=== PATIENT | male | born 1985 | race Caucasian/White ===

== ENCOUNTER 2017-02-11 20:39 | Emergency (ER) | payer OTHER ==
--- NOTE | 2017-02-12 00:06 | DIAGNOSTIC IMAGING REPORT ---
PROCEDURE: ABDOMEN/PELVIS WITH CONTRAST CLINICAL INDICATION: ABDOMINAL PAIN TECHNIQUE: 130 ml of Isovue 300 were injected intravenously and axial images were obtained of the abdomen and pelvis with sagittal and coronal reformations. COMPARISON: None. FINDINGS: ABDOMEN: The gallbladder surgically absent. Minor left base atelectasis. Normal sized heart. No hiatal hernia. The liver, adrenal glands, kidneys, and spleen are normal. The abdominal aorta is normal in its course and caliber. There is a trace amount of camryn vascular fat stranding adjacent to the celiac axis and superior mesenteric artery origin. Nonenlarged, but numerous periaortic retroperitoneal lymph nodes are present. There are nonenlarged lymph nodes mesenteric small bowel, particularly in the left upper abdomen. There are no suspicious calcifications, or masses. The stomach, and upper bowel loops are normal. Intact anterior abdominal wall. PELVIS: The appendix and pelvic small bowel loops are normal. Normal to minimally increased amount of stool in the colon and rectum. The prostate gland , seminal vesicles, urinary bladder, and pelvic vessels are normal. No adenopathy , free fluid, or pelvic mass. Limbus vertebra L5. IMPRESSION: 1. Nonspecific, subtle retroperitoneal/camryn vascular inflammation in the upper retroperitoneum. There are numerous, but none bulky lymph nodes in the retroperitoneum and small bowel mesentery. These findings are nonspecific and could indicate early or resolving/residual changes of mild pancreatitis, less likely large vessel arteritis, lymphoma, or retroperitoneal fibrosis. 2. Status post cholecystectomy. 3. Discussed with Dr. Miles in the emergency room. All CT scans at this facility use dose modulation, iterative reconstruction, and/or weight-based dosing when appropriate to reduce radiation dose to as low as reasonably achievable.
--- NOTE | 2017-02-12 01:44 | ED NURSING NOTES ---
Clinical Report - Nurses [facility] [address] [place] [address] 02/11/2017 20:39 Patient: PAOLO CRAWFORD TRIAGE Triage time 20:46. Acuity: LEVEL 3. Chief Complaint: ABDOMINAL PAIN and NAUSEA. --20:49 TonyaB, R.N. 20:46 02/11/17. BP: 151/94. HR: 72. RR: 18. O2 saturation: 97%. Temp: 97.8 F. Pain level now: 01/17. --20:49 TonyaB, R.N. Weight: 116.1 kg. Height/Length: 76 inches. BMI: 31.2. --20:48 TonyaB, R.N. Medications None. --20:47 TonyaB, R.N. Allergies No Known Drug Allergy. --20:47 TonyaB, R.N. History Arrived by private vehicle. Historian: patient. Onset. (1 months). Treatment AUTO ACCESSORIES INSTALLER: None. PAST MEDICAL HX: Immunizations: up-to-date. SOCIAL HX: Never smoker. Occasional alcohol use. No drug use. No recent travel. No infectious disease exposure. No known contact with a sick individual. SELF HARM ASSESSMENT: A self harm assessment was performed. The patient answered "no" to the question "Have you recently felt down, depressed, or hopeless?", "Have you noticed less interest or pleasure in doing things?", "Do you have thoughts of harming or killing yourself?", "Are you here because you tried to hurt yourself?", "Have you ever tried to hurt yourself before today?", "Have you recently had thoughts about harming or killing others?" and "Do you have any dangerous items in your possession?". FALL RISK ASSESSMENT: Fall risk assessment completed. No fall risk identified. NUTRITIONAL RISK ASSESSMENT: The nutritional risk assessment revealed no deficiencies. FUNCTIONAL ASSESSMENT: Functional assessment: no impairments noted. LEARNING NEEDS ASSESSMENT: The learning needs assessment revealed no barriers. ABUSE ASSESSMENT: Abuse assessment: The patient was asked "Do you feel safe in your home?". SKIN INTEGRITY ASSESSMENT: Skin integrity risk assessment completed. No skin integrity risk identified. --20:49 Travis Gilbert PROBLEMS: Lumbar Radiculopathy. Intervertebral Disc Disease. Back Injury. Impacted Cerumen. Pharyngitis. Strep Throat. Seasonal allergic rhinitis. Back Pain. Rectal Bleed. Weakness. Neuropathy. Epididymitis. Crush Injury, Upper Extremity. Fractured Metacarpal. Tetanus Status. Hemorrhoids. Headache. Hypertension. Dyspnea. Bronchitis. Immunizations. Asthma. --20:47 Que Gilbert. ADDITIONAL SURGERIES: Cholecystectomy. Inguinal Hernia Repair. --20:47 Que Gilbert. Interventions ID band on patient. To treatment room. --20:49 Que Gilbert. PHYSICAL ASSESSMENT Ambulatory to room. GENERAL / NEURO / PSYCH: Alert. Oriented X 4. Appears in no acute distress. HEENT: Mucous membranes are pink. RESPIRATORY: Respirations not labored. Breath sounds within normal limits. CVS: Normal sinus rhythm noted. Capillary refill less than 2 seconds. GI / : Abdomen soft. Abdominal tenderness. Bowel sounds within normal limits. SKIN: Skin is warm and dry. --20:49 Travis Gilbert NURSING PROGRESS NOTES Patient gowned. Patient identifiers checked. Call light placed in reach. Side rails up x 1. Bed placed in lowest position. Brakes of bed on. --20:49 Travis Gilbert 20:58 02/11/2017 Site #1 started via IV in the left antecubital space with an 20g angiocath, with aseptic technique and good blood return; one attempt. Blood drawn: rainbow set. Labeled in the presence of the patient and sent to the lab. Saline lock flushed with 10 mL saline. --20:58 Travis Gilbert 21:02/11/2017 Started bag #1 1000 mL IV Fluids IV NS (Saline); at 999 mL/hr over 1 hour(s) via site #1 via dial-a-flow. Allergies verified and confirmed 5 rights. IV patency established. IV site checked: no pain, redness, or swelling. IV flushed thoroughly pre- and post-medication administration. --21:13 Travis Gilbert 21:02/11/2017 Toradol IVP 30 mg given over 1 minute(s) via site #1. Allergies verified and confirmed 5 rights. IV patency established. IV site checked: no pain, redness, or swelling. IV flushed thoroughly pre- and post-medication administration. IVP given by RN. --21:13 Travis Gilbert 21:14 02/11/2017 Zofran (Ondansetron HCl) IVP 4 mg given over 1 minute(s) via site #1. Allergies verified and confirmed 5 rights. IV patency established. IV site checked: no pain, redness, or swelling. IV flushed thoroughly pre- and post-medication administration. IVP given by RN. --21:14 Travis Gilbert 21:20. EKG was performed by a tech. --21:20 McQuoid, Eva, ER Tech1 22:02 02/11/2017 IV Fluids IV NS Discontinued: bag #1 completed. Total amount infused: 1000 mL. IV patency established. IV site checked: no pain, redness, or swelling. IV flushed thoroughly. --22:02 Travis Gilbert Reassessment after medication administered. He is resting quietly. --22:13 Travis Gilbert 00:10 02/12/2017 GI COCKTAIL WHITE (Simethicone) PO Oral Suspension 50 mL given. Allergies verified and confirmed 5 rights. --00:10 Mary Ann Hickey ( no change in pain level after GI cocktail). --01:08 Travis Gilbert DISPOSITION / DISCHARGE Departure time: 02:00. Condition at departure: improved. No learning barriers present. Discharge instructions provided and reviewed with the patient. Reviewed medication(s) side effects, precautions, dosing and course information. Prescription(s) given to the patient. Patient verbalized understanding. Written instructions provided in Montenegrin. No warning instructions, treatment instructions, referrals given to the patient, diet instructions or activity restrictions. No note given, follow up contact number given or stop smoking instructions. The patient was discharged by the physician. He was discharged home. He left the Emergency Department ambulatory and via private vehicle. Patient driving. FALL RISK ASSESSMENT: Fall risk assessment completed. No fall risk identified. --02:00 Travis Gilbert 01:56 02/12/17. BP: deferred. HR: 68. RR: 18. O2 saturation: 99%. Temp: deferred. Pain level now: 0/10. --02:00 Travis Gilbert 02:00 02/12/2017 Site #1 removed upon discharge. Catheter intact. Bandaid applied. --02:00 Travis Gilbert Locked/Released at 02/12/2017 2:01 by Travis Gilbert
--- NOTE | 2017-02-12 01:44 | ED CLINICAL REPORT ---
Clinical Report - Physicians/Mid Levels [facility] [address] [place] [address] 02/11/2017 20:39 Patient: PAOLO CRAWFORD Time Seen: 20:47; upon arrival, initial patient contact, initial documentation, patient care assumed. Arrived- By private vehicle. Historian- patient. CPT: ER phys charges level 4 plus (#[id number]). EKG interpretation (#[id number]). HISTORY OF PRESENT ILLNESS Chief Complaint: ABDOMINAL PAIN. At its maximum, severity described as mild. When seen in the E.D., severity described as mild. Modifying factors. Not worsened by anything. Not relieved by anything. It is described as "pain" and it is described as located in the right upper quadrant and radiating to the upper back. This started about 6 months ago. Worse over the past month. and is still present and now worse. (GENERATION TECHNOLOGIST). It was abrupt in onset and has been intermittent. The patient has had nausea. No loss of appetite, vomiting or diarrhea. No additional abdominal pain. No recent travel. Similar symptoms previously: Once, as bad. ( same pain when he had his gallbladder issues). Recent medical care: Not recently seen/assessed. REVIEW OF SYSTEMS No constipation, black stools or stools, hematemesis or difficulty with urination. No pain with urination, urinary frequency, bloody stools or stools or fever. No sore throat, calf pain, chest pain, cough or difficulty breathing. No constipation, diarrhea, skin rash, dizziness or weakness. No diabetic symptoms or easy bruising. The patient has had chest pain, difficulty breathing and abdominal pain. No difficulty walking. All systems otherwise negative, except as recorded above. PAST HISTORY See nurses notes. PROBLEMS: Lumbar Radiculopathy. Intervertebral Disc Disease. Back Injury. Impacted Cerumen. Pharyngitis. Strep Throat. Seasonal allergic rhinitis. Back Pain. Rectal Bleed. Weakness. Neuropathy. Epididymitis. Crush Injury, Upper Extremity. Fractured Metacarpal. Tetanus Status. Hemorrhoids. Headache. Hypertension. Dyspnea. Bronchitis. Immunizations. Asthma. --20:47 Travis Gilbert ADDITIONAL SURGERIES: Cholecystectomy. Inguinal Hernia Repair. --20:47 Travis Gilbert SOCIAL HISTORY Never smoker. Occasional alcohol use. No drug use. No recent travel. Is a local resident. He lives with spouse. FAMILY HISTORY Negative. ADDITIONAL NOTES The nursing notes have been reviewed with agreement regarding the chief complaint, HPI, ROS, PMH and patient medications and allergies. PHYSICAL EXAM Vital Signs: 02/11/2017 20:46 BP: 151/94. HR: 72. RR: 18. O2 saturation: 97%. Temp: 97.8 F. Pain level now: 01/17. Have been reviewed as abnormal and appear to be correct. Hypertensive. Heart rate normal. Respiratory rate normal. Temperature normal. Oxygen saturation normal. Appearance: Alert. Oriented X3. No acute distress. Eyes: Pupils equal, round and reactive to light. Eyes normal inspection. Neck: Normal inspection. Neck supple. CVS: Normal heart rate and rhythm. Heart sounds normal. Pulses normal. Respiratory: No respiratory distress. Breath sounds normal. (pain over the costal margin on the right with mild pain over the flank.). Abdomen: Soft. Mild tenderness in the right upper quadrant. Bowel sounds normal. No organomegaly. No mass. Tenderness present. Back: Normal inspection. Skin: Skin warm and dry. Normal skin color. No rash. Normal skin turgor. Extremities: Extremities exhibit normal ROM. No lower extremity edema. Neuro: Oriented X 3. No motor deficit. No sensory deficit. LABS, X-RAYS, AND EKG EKG: EKG time: (2119). No acute process. No acute ischemia. Normal EKG. Rate: 68. First-degree atrioventricular block. Normal EKG. The study has been interpreted contemporaneously by me (and interpreted by Dr Miles). The EKG appears to be a good tracing. Interpretation time: 2119. Abdominal CT: Normal liver, spleen and pancreas. No free fluid. No hepatomegaly or splenomegaly. Abdominal CT performed with IV contrast. The study was interpreted by the radiologist and discussed with the radiologist. Laboratory Tests: Lipase: (REBEKAH: 02/12/2017 00:00) ( MsgRcvd 02/12/2017 00:32) Final results Test Result Flag Units (Reference) LIPASE 223 U/L (73-393) UA-Culture if indicated: (REBEKAH: 02/11/2017 21:05) ( MsgRcvd 02/11/2017 21:31) Final results Test Result Flag Units (Reference) URINE COLOR YELLOW URINE APPEARANCE CLEAR URINE GLUCOSE NEGATIVE (NEGATIVE) URINE BILIRUBIN NEGATIVE (NEGATIVE) URINE KETONE NEGATIVE (NEGATIVE) URINE SPECIFIC GRAVITY 1.025 (1.010-1.030) URINE PH 6.0 (5.0-8.0) URINE PROTEIN NEGATIVE (NEGATIVE) URINE UROBILINOGEN 1.0 EU/dL (0.2-1.0) URINE NITRITE NEGATIVE (NEGATIVE) URINE BLOOD NEGATIVE (NEGATIVE) URINE LEUK ESTERASE NEGATIVE (NEGATIVE) URINE RBC NONE SEEN rbc/hpf (0-1) URINE WBC RARE wbc/hpf (0-1) URINE EPITHELIAL CELLS NONE SEEN EPI/hpf (0-5) URINE BACTERIA TRACE (<1+) (NONE SEEN) URINE COMMENT CULT NOT INDICATED URINE CULTURES ARE SET-UP BASED ON THE FOLLOWING CRITERIA:POSITIVE NITRITEPOSITIVE LEUKOCYTE ESTERASEGREATER THAN 10 WHITE BLOOD CELLSMODERATE (2+) OR GREATER BACTERIA CBC w Diff: (REBEKAH: 02/11/2017 20:55) ( MsgRcvd 02/11/2017 21:12) Final results Test Result Flag Units (Reference) WHITE BLOOD COUNT 7.3 K/uL (4.5-11.5) RED BLOOD COUNT 4.72 M/uL (4.50-5.90) HEMOGLOBIN 15.0 gm/dL (13.5-17.5) HEMATOCRIT 42.6 % (41.0-53.0) MEAN CELL VOLUME 90 fL (80-100) MEAN CORPUSCULAR HGB 32 pg (26-34) MEAN CORPUSCULAR HGB CONC 35 g/dL (31-37) RED CELL DISTRIBUTION WIDTH 13.0 % (11.6-14.8) PLATELET COUNT 197 K/uL (150-400) NEUTROPHIL % 44.5 L % (50-75) LYMPH % 42.8 H % (25-40) MONO % 8.6 % (3-14) EOSINOPHIL % 3.5 % (0-4) BASOPHIL % 0.6 % (0-2) [id number]: (REBEKAH: 02/11/2017 20:55) ( MsgRcvd 02/11/2017 23:23) Final results Test Result Flag Units (Reference) C-REACTIVE PROTEIN < 0.2 mg/dL (0.0-0.9) [id number]: (REBEKAH: 02/11/2017 20:55) ( MsgRcvd 02/11/2017 23:34) Final results Test Result Flag Units (Reference) PROCALCITONIN < 0.05 ng/mL (0-0.5) PCT Concentration: Interpretation : Risk/option for action PCT <=0.5 ng/mL : Systemic : Low risk forinfection(sepsis): progression to severeis not likely. : systemic infection.Local bacterial : CAUTION-PCT levelsinfection is : below 0.5 ng/mL do notpossible. : exclude an infection,because localizedinfections (withoutsystemic signs) may beassociated with suchlow levels. If PCT ismeasured very earlyafter a bacterialchallenge (usually <6hours), these valuesmay still be low. Inthis case PCT shouldbe re-assessed 6-24hours later. PCT >0.5 and : Systemic infection: Moderate risk for<= 2 ng/mL : (sepsis) is : progression to severepossible, but : systemic infection.other conditions : The patient should beare known to : closely monitoredelevate PCT. : both clinically andby re-assessing PCTwithin 6-24 hours. PCT > 2 ng/mL : Systemic infection: High risk for(sepsis) is likely: progression to severeunless other : systemic infection.causes are known. : PCT >= 10 ng/mL : Important systemic: High likelihood ofinflammatory : severe sepsis orresponse, almost : septic shock.exclusively due to:severe bacterial :sepsis or septic :shock. : CMP: (REBEKAH: 02/11/2017 20:55) ( MsgRcvd 02/11/2017 21:43) Final results Test Result Flag Units (Reference) GLUCOSE 99 mg/dL (70-110) BUN 15 mg/dL (7-18) CREATININE 1.2 mg/dL (0.6-1.3) Estimated GFR >60 mL/min Estimated GFR- >60 mL/min Note: Persistent reduction over 3 months in eGFR<60 mL/min/1.73 m2 defines CKD. Patients with eGFR values>=60 mL/min/1.73 m2 may also have CKD if evidence ofpersistent proteinuria. Additional information may be foundat www.kidney.org. SODIUM 145 mmol/L (136-145) POTASSIUM 3.7 mmol/L (3.5-5.1) CHLORIDE 107 mmol/L (98-107) CARBON DIOXIDE 28 mmol/L (21-32) CALCIUM 8.5 mg/dL (8.5-10.1) TOTAL PROTEIN 7.8 g/dL (6.4-8.2) ALBUMIN 4.0 g/dL (3.3-5.0) BILIRUBIN, TOTAL 0.5 mg/dL (0.0-1.0) ALKALINE PHOSPHATASE 64 U/L (46-116) AST (SGOT) 32 U/L (15-37) ALT (SGPT) 61 U/L (12-78) LIPASE 216 U/L (73-393) AMYLASE 60 U/L (25-115) . PROGRESS AND PROCEDURES Course of Care: 2134. pt updated with ekg results and currents labs, pain down a hair 2244. awaiting ct, resting quietly, nad 23:13 02/11/17. reported off to Dr Miles, pt in ct 01:42 02/12/17. CT negative, repeat Lipase negative and white GI cocktail did nothing. Pt has musculoskeletal pain on my exam. Will try conservative measures and have him follow up. Patient/family counseled. Differential Diagnosis: I considered gastritis, gastroenteritis, peptic ulcer disease, gastroesophageal reflux disease, mesenteric lymphadenitis, biliary colic, hepatitis, pancreatitis, common bile duct obstruction, hernia, urinary tract infection, ureterolithiasis and viral syndrome as a possible cause of abdominal pain in this patient. This is a partial list of diagnoses considered. Above considerations are based on history, physical exam, reassessment, laboratory data and EKG. Differential diagnosis was discussed with patient. Disposition: Discharged. Condition: stable. CLINICAL IMPRESSION Probable chest wall pain .12 lead EKG performed. INSTRUCTIONS Apply moist heat for 15-20 minutes two times a day for one weeks until better. No strenuous activity. Warnings: Further evaluation is necessary. GENERAL WARNINGS: Return or contact your physician immediately if your condition worsens or changes unexpectedly, if not improving as expected, or if other problems arise. Prescription Medications: Ibuprofen 800 mg tablets: take 1 tablet orally every 8 hours as needed for pain. Dispense thirty (30). No refills. Follow-up: Follow up with your doctor in one week. Call for an appointment. Understanding of the discharge instructions verbalized by patient. (Electronically signed by Macho Miles MD 02/12/2017 23:25)
--- NOTE | 2017-02-12 01:45 | ED ORDER SUMMARY ---
..... Patient: PAOLO CRAWFORD OrderSheet [facility] VisitID: [id number] [place] [address] 31y, M Registration Date/Time: 02/11/2017 ORDER SHEET Weight: 116.1 kg Allergies: No Known Drug Allergy GENERAL ORDERS: CBC w Diff Urgent (21:03 02/11/2017 HBivens A.R.N.P.) (21:04 TBowen R.N.) CMP Urgent (21:03 02/11/2017 HBivens A.R.N.P.) (21:04 TBowen R.N.) UA-Culture if indicated Urgent (21:03 02/11/2017 HBivens A.R.N.P.) (21:13 TBowen R.N.) Amylase Urgent (21:03 02/11/2017 HBivens A.R.N.P.) (21:04 TBowen R.N.) Lipase Urgent (21:03 02/11/2017 HBivens A.R.N.P.) (21:04 TBowen R.N.) EKG - ER Stat (21:03 02/11/2017 HBivens A.R.N.P.) (21:19 AMcQuoid ER Tech1) CT Abd/Pel w Cont (No) (normal) Urgent (21:56 02/11/2017 HBivens A.R.N.P.) (Ack 22:03 AMcQuoid ER Tech1) (23:16 MCampbell) PCT (Procalcitonin) Urgent (23:05 02/11/2017 Deborah CARABALLO) (23:16 AMcQuoid ER Tech1) CRP Urgent (23:05 02/11/2017 Deborah CARABALLO) (23:16 AMcQuoid ER Tech1) Lipase Urgent (00:00 02/12/2017 Deborah CARABALLO) (0:15 AMcQuoid ER Tech1) MEDICATION ORDERS: GI Cocktail WHITE PO 50 mL (NOW) (23:59 02/11/2017 Deborah CARABALLO) (Ack 0:05 HSoule) (0:10 HSoule) IV FLUIDS: IV NS : initial bolus 1000 mL (1000 mL/hr), then none - (NOW) (21:03 02/11/2017 HBivens A.R.N.P.) (21:13 TBowen R.N.) Toradol IV 30 mg (NOW) (21:03 02/11/2017 HBivens A.R.N.P.) (21:13 TBowen R.N.) Zofran IV 4 mg (NOW) (21:02/11/2017 HBivens A.R.N.P.) (21:14 TBowen R.N.) IV Saline Lock (21:02/11/2017 HBivens A.R.N.P.) (21:06 TBowen R.N.) ORDER SHEET NOTES: [Electronically signed by Colleen Beebe R.N. (02:01 02/12/2017)] [Electronically signed by Macho Miles MD (23:25 02/12/2017)] [Electronically locked/signed by Colleen Beebe R.N. (02:02/12/2017)]
--- NOTE | 2017-02-12 01:45 | ED ORDER SUMMARY ---
..... Patient: PAOLO CRAWFORD OrderSheet [facility] VisitID: [id number] [place] [address] 31y, M Registration Date/Time: 02/11/2017 ORDER SHEET Weight: 116.1 kg Allergies: No Known Drug Allergy GENERAL ORDERS: CBC w Diff Urgent (21:03 02/11/2017 HBivens A.R.N.P.) (21:04 TBowen R.N.) CMP Urgent (21:03 02/11/2017 HBivens A.R.N.P.) (21:04 TBowen R.N.) UA-Culture if indicated Urgent (21:03 02/11/2017 HBivens A.R.N.P.) (21:13 TBowen R.N.) Amylase Urgent (21:03 02/11/2017 HBivens A.R.N.P.) (21:04 TBowen R.N.) Lipase Urgent (21:03 02/11/2017 HBivens A.R.N.P.) (21:04 TBowen R.N.) EKG - ER Stat (21:03 02/11/2017 HBivens A.R.N.P.) (21:19 AMcQuoid ER Tech1) CT Abd/Pel w Cont (No) (normal) Urgent (21:56 02/11/2017 HBivens A.R.N.P.) (Ack 22:03 AMcQuoid ER Tech1) (23:16 MCampbell) PCT (Procalcitonin) Urgent (23:05 02/11/2017 Deborah CARABALLO) (23:16 AMcQuoid ER Tech1) CRP Urgent (23:05 02/11/2017 Deborah CARABALLO) (23:16 AMcQuoid ER Tech1) Lipase Urgent (00:00 02/12/2017 Deborah CARABALLO) (0:15 AMcQuoid ER Tech1) MEDICATION ORDERS: GI Cocktail WHITE PO 50 mL (NOW) (23:59 02/11/2017 Deborah CARABALLO) (Ack 0:05 HSoule) (0:10 HSoule) IV FLUIDS: IV NS : initial bolus 1000 mL (1000 mL/hr), then none - (NOW) (21:03 02/11/2017 HBivens A.R.N.P.) (21:13 TBowen R.N.) Toradol IV 30 mg (NOW) (21:03 02/11/2017 HBivens A.R.N.P.) (21:13 TBowen R.N.) Zofran IV 4 mg (NOW) (21:02/11/2017 HBivens A.R.N.P.) (21:14 TBowen R.N.) IV Saline Lock (21:02/11/2017 HBivens A.R.N.P.) (21:06 TBowen R.N.) ORDER SHEET NOTES: [Electronically signed by Colleen Beebe R.N. (02:01 02/12/2017)] [Electronically signed by Macho Miles MD (23:25 02/12/2017)] [Electronically locked/signed by Colleen Beebe R.N. (02:02/12/2017)]
--- NOTE | 2017-02-12 23:25 | ED DISCHARGE INSTRUCTIONS ---
Patient: PAOLO CRAWFORD General Instructions [facility] VisitID: [id number] [place] [address] 31y, M Registration Date/Time: 02/11/2017 Probable chest wall pain .12 lead EKG performed. INSTRUCTIONS Apply moist heat for 15-20 minutes two times a day for one weeks until better. No strenuous activity. Warnings: Further evaluation is necessary. GENERAL WARNINGS: Return or contact your physician immediately if your condition worsens or changes unexpectedly, if not improving as expected, or if other problems arise. Prescription Medications: Ibuprofen 800 mg tablets: take 1 tablet orally every 8 hours as needed for pain. Dispense thirty (30). No refills. Follow-up: Follow up with your doctor in one week. Call for an appointment. Understanding of the discharge instructions verbalized by patient. ADDITIONAL INFORMATION Chest Wall Pain: Costochondritis The chest pain that you have had today is caused by Costochondritis. This condition is due to an inflammation of the cartilage joining the ribs to the breastbone. It is not caused by heart or lung problems. Although the exact cause for costochondritis is not known, it often occurs during times of emotional stress. It can be painful, but it is not dangerous. It usually disappears within one to two weeks, but may recur. Rarely, a more serious condition may cause symptoms similar to costochondritis; therefore, watch for the warning signs listed below. Home Care: If you feel that emotional stress is a cause of your condition, try to identify sources of that stress. It may not be obvious! Learn ways to deal with the stress in your life such as regular exercise, muscle relaxation, meditation, or simply taking time out for yourself. For more information about this, consult your doctor or go to a local bookstore and review books and tapes available on the subject of stress reduction. You may use acetaminophen (Tylenol) or ibuprofen (Motrin, Advil) to control pain, unless another pain medicine was prescribed. [ NOTE: If you have liver disease or ever had a stomach ulcer, talk with your doctor before using these medicines.] The use of heat (hot wet compress or heating pad) with or without local analgesic creams (Deep Heat Rub, Anibal Anderson) will be helpful to reduce pain. Follow Up with your doctor as directed or sooner if you do not start to improve within the next two days. Get Prompt Medical Attention if any of the following occur: A change in the type of pain: if it feels different, becomes more severe, lasts longer, or spreads into your shoulder, arm, neck, jaw or back Shortness of breath or increased pain with breathing Weakness, dizziness, or fainting Cough with dark colored sputum (phlegm) or blood Abdominal pain Dark red or black stools Fever of 100.4F (38C) or higher, or as directed by your healthcare provider You have been given the following additional information: Chest Wall Pain, Costochondritis No strenuous activity. (Electronically signed by Macho Miles MD 02/12/2017 23:25)
--- NOTE | 2017-02-12 23:25 | ED MAR SUMMARY ---
..... Medication Administration Record [facility] [address] [place] [address] Patient: PAOLO CRAWFORD Visit ID: [id number] 31y, M Weight: 116.1 kg Height/Length: 76 in BMI: 31.2 ALLERGIES: No Known Drug Allergy Start 21:13 02/11/2017 Vladimir RPatt, Stop 22:02 02/11/2017 Travis Gilbert Medication Administered: IV NS (SALINE), Dose: IV Fluids over 1 hour(s), Rate: 999 mL/hr, Dispensed: 1000 mL bag, Site: #1 left AC. Medication Ordered: IV NS : initial bolus 1000 mL (1000 mL/hr), then none - (NOW). Given 21:13 02/11/2017 Travis Gilbert Medication Administered: TORADOL [IVP], Dose: 30 mg IVP over 1 minute(s), Site: #1 left AC. Medication Ordered: Toradol IV 30 mg (NOW). Given 21:14 02/11/2017 Vladimir RMiltonN. Medication Administered: ZOFRAN [IVP] (ONDANSETRON HCL), Dose: 4 mg IVP over 1 minute(s), Site: #1 left AC. Medication Ordered: Zofran IV 4 mg (NOW). Given 00:10 02/12/2017 Mary Ann Hickey, Medication Administered: GI COCKTAIL WHITE [PO] (SIMETHICONE), Dose: 50 mL Oral Suspension PO. Medication Ordered: GI Cocktail WHITE PO 50 mL (NOW).
--- NOTE | 2017-02-12 23:25 | ED MAR SUMMARY ---
..... Medication Administration Record [facility] [address] [place] [address] Patient: PAOLO CRWAFORD Visit ID: [id number] 31y, M Weight: 116.1 kg Height/Length: 76 in BMI: 31.2 ALLERGIES: No Known Drug Allergy Start 21:13 02/11/2017 Vladimir RPatt, Stop 22:02 02/11/2017 Travis Gilbert Medication Administered: IV NS (SALINE), Dose: IV Fluids over 1 hour(s), Rate: 999 mL/hr, Dispensed: 1000 mL bag, Site: #1 left AC. Medication Ordered: IV NS : initial bolus 1000 mL (1000 mL/hr), then none - (NOW). Given 21:13 02/11/2017 Travis Gilbert Medication Administered: TORADOL [IVP], Dose: 30 mg IVP over 1 minute(s), Site: #1 left AC. Medication Ordered: Toradol IV 30 mg (NOW). Given 21:14 02/11/2017 Vladimir RMiltonN. Medication Administered: ZOFRAN [IVP] (ONDANSETRON HCL), Dose: 4 mg IVP over 1 minute(s), Site: #1 left AC. Medication Ordered: Zofran IV 4 mg (NOW). Given 00:10 02/12/2017 Mary Ann Hickey, Medication Administered: GI COCKTAIL WHITE [PO] (SIMETHICONE), Dose: 50 mL Oral Suspension PO. Medication Ordered: GI Cocktail WHITE PO 50 mL (NOW).
--- NOTE | 2017-02-12 23:26 | ED MED RECONCILIATION SUMMARY ---
Patient: PAOLO CRAWFORD Medication Reconciliation Report [facility] VisitID: [id number] [place] [address] 31y, M Registration Date/Time: 02/11/2017 Weight: 116.1 kg Height/Length: 76 in. BMI: 31.2 ALLERGIES: No Known Drug Allergy The patient's Home Medications are listed below: NONE. The source(s) of the original Home Medication information: Not obtained. The following Medications were given to the patient in the Emergency Department: IV NS IV Fluids bolus 0, then 999 mL/hr, administered: 02/11/2017 9:13:00 PM Toradol [IVP] IVP 30 mg, administered: 02/11/2017 9:13:00 PM Zofran [IVP] IVP 4 mg, administered: 02/11/2017 9:14:00 PM GI COCKTAIL WHITE [PO] PO 50 mL, administered: 02/12/2017 12:10:00 AM The following Medications were prescribed to the patient: Ibuprofen 800 mg tablets: take 1 tablet orally every 8 hours as needed for pain. Dispense thirty (30). No refills. -- Macho Miles MD
--- NOTE | 2017-02-12 23:26 | ED MED RECONCILIATION SUMMARY ---
Patient: PAOLO CRAWFORD Medication Reconciliation Report [facility] VisitID: [id number] [place] [address] 31y, M Registration Date/Time: 02/11/2017 Weight: 116.1 kg Height/Length: 76 in. BMI: 31.2 ALLERGIES: No Known Drug Allergy The patient's Home Medications are listed below: NONE. The source(s) of the original Home Medication information: Not obtained. The following Medications were given to the patient in the Emergency Department: IV NS IV Fluids bolus 0, then 999 mL/hr, administered: 02/11/2017 9:13:00 PM Toradol [IVP] IVP 30 mg, administered: 02/11/2017 9:13:00 PM Zofran [IVP] IVP 4 mg, administered: 02/11/2017 9:14:00 PM GI COCKTAIL WHITE [PO] PO 50 mL, administered: 02/12/2017 12:10:00 AM The following Medications were prescribed to the patient: Ibuprofen 800 mg tablets: take 1 tablet orally every 8 hours as needed for pain. Dispense thirty (30). No refills. -- Macho Miles MD
== END 2017-02-12 01:55 | disposition home or self-care (01) ==
LOC: ED SRH 20:39
DX: R10.11 Right upper quadrant pain (principal); R11.0 Nausea; I10 Essential (primary) hypertension
CPT/HCPCS: 90004; 90100; 91585; 92235; 92530; 93004; 95059

== ENCOUNTER 2017-02-17 12:47 | Outpatient (CLI) | payer OTHER | END 2017-02-17 23:00 | LOC: LAB SRH 12:47 | DX: R79.1 Abnormal coagulation profile (principal) | CPT/HCPCS: 90074; 91556 ==